=== PATIENT | male | born 1955 | race Caucasian/White ===

== ENCOUNTER 2017-02-18 02:03 | Emergency (ER) | payer MEDICARE ==
[~2017-02-18] VITALS: Ht 175.3 cm; Wt 100.0 kg
[~2017-02-18 02:03] MED LIST: ADLT ASA LOW81 MG PO; ALDACTONE25 MG PO; ASPIRIN EC325 MG PO; AUGMENTIN875TAB PO; CARDIZEM CD240 MG PO; DILTIAZEM HCL60 MG PO; DILTIAZEM90 M1 PO; FLOMAX0.4 M1 PO; LANOXIN0.25 MG PO; LASIX 40 MG40 MG/TAB PO; LISINOP/HCTZ1 TAB PO; LOPRESSOR 550 MG/TAB PO; LORTAB 7.5 OR; NO HOME MEDS
[2017-02-18] MEDS ORDERED: KEFLEX500 M1 PO (02:43)
[2017-02-18 03:00] VITALS: BP 198/110
== END 2017-02-18 03:00 | disposition home or self-care (01) ==
LOC: ED 02:03
DX: S61.247A Puncture wound with foreign body of left little finger without damage to nail, initial encounter (principal); I10 Essential (primary) hypertension; I25.10 Atherosclerotic heart disease of native coronary artery without angina pectoris; I48.91 Unspecified atrial fibrillation; F17.210 Nicotine dependence, cigarettes, uncomplicated; W22.8XXA Striking against or struck by other objects, initial encounter; Y93.89 Activity, other specified; Y92.009 Unspecified place in unspecified non-institutional (private) residence as the place of occurrence of the external cause

== ENCOUNTER 2017-07-07 11:40 | Emergency (ER) | payer MEDICARE ==
[~2017-07-07] VITALS: Ht 175.3 cm; Wt 98.0 kg
[~2017-07-07 11:40] MED LIST changes: +KEFLEX500 M1 PO
[2017-07-07 13:34] VITALS: BP 162/78
== END 2017-07-07 13:35 | disposition home or self-care (01) ==
LOC: ED 11:40
DX: S60.351A Superficial foreign body of right thumb, initial encounter (principal); B19.20 Unspecified viral hepatitis C without hepatic coma; I51.9 Heart disease, unspecified; F17.210 Nicotine dependence, cigarettes, uncomplicated; X58.XXXA Exposure to other specified factors, initial encounter